=== PATIENT | male | born 1950 | race Two or more races ===

== ENCOUNTER 2018-06-08 15:13 | Inpatient (IN) | payer MEDICAID, MEDICARE ==
[~2018-06-08] VITALS: Ht 180.3 cm; Wt 78.6 kg
[2018-06-08] MEDS ORDERED: SODIUM CHLORIDE 0.9% 1,000 ML IV ONE (15:46)
[2018-06-08] MEDS ORDERED: DIPHENOXYLATE W/ATROPINE 2.5 MG TAB PO ONE (16:00)
[2018-06-08 16:01] LABS: Basophils # (auto) 0 uL; Basophils % (auto) 0.1 % (0.0-2.0); Eosinophils # (auto) 0 uL; Hemoglobin 14.9 g/dL (13.5-17.5); Neutrophils # (auto) 4.9 uL; Nucleated Red Blood Cells % 0.1 %; Red Cell Distribution Width 14.5 % (11.8-14.3); White Blood Cell 6.5 10^3/uL (4.4-10.8)
[2018-06-08 16:02] LABS: Eosinophils % (auto) 0.3 % (0.0-7.0); Lymphocytes # (auto) 0.7 uL; Lymphocytes % (auto) 10.9 % (10.0-50.0); Mean Corpuscular Hemoglobin 28.8 pg (28.0-32.0); Mean Corpuscular Volume 84.8 fL (80.0-100.0); Monocytes # (auto) 0.8 uL; Monocytes % (auto) 12.3 % (0.0-12.0); Neutrophils % (auto) 76.4 % (37.0-80.0); Platelet Count (auto) 524 10^3/uL (140-450); Red Blood Cells 5.18 10^6/uL (4.5-5.90)
[2018-06-08 16:13] LABS: INR 1.22 (0.9-1.15); Partial Thromboplastin Time 28.4 sec (23.78-33.04); Prothrombin Time 12.9 sec (9.27-12.13)
[2018-06-08 16:14] LABS: Albumin 2.7 g/dL (3.4-5.0); Calcium 8.3 mg/dL (8.5-10.1); Potassium 3.5 mmol/L (3.5-5.1)
[2018-06-08 16:17] LABS: BUN/Creatinine Ratio 12.7; Bilirubin, Total 0.9 mg/dL (0.2-1.0); Total Protein 7.7 g/dL (6.4-8.2)
[2018-06-08 17:10] LABS: Urine Bacteria NONE SEEN /hpf (None Seen); Urine Blood TRACE /uL (Negative); Urine Mucus FEW (None Seen); Urine Specific Gravity 1.025 (1.001-1.035); Urine WBC 3 /hpf (0 - 3)
[2018-06-08] MEDS ORDERED: VANCOMYCIN 1GM/250ML 250 ML IV ONE (17:15)
[2018-06-08] MEDS ORDERED: PIPERACILLIN-TAZOB 3.375GM 100 ML IV ONE (17:15)
[2018-06-08] MEDS ORDERED: ACETAMINOPHEN 500 MG TAB PO PRN (17:30)
[2018-06-08] MEDS ORDERED: traMADol HCL 50 MG TAB PO PRN (17:30)
[2018-06-08] MEDS ORDERED: LORazepam 0.5 MG TAB PO PRN (17:30)
[2018-06-08] MEDS ORDERED: DEXTROSE (50%) 50ML SYRG IV PRN (17:30)
[2018-06-08] MEDS ORDERED: ONDANSETRON HCL 4 MG/2 ML VIAL IV PRN (17:30)
[2018-06-08] MEDS ORDERED: NITROGLYCERIN 0.4 MG SL TAB SL PRN (17:30)
[2018-06-08] MEDS ORDERED: TEMAZEPAM 15 MG CAP PO PRN (17:30)
[2018-06-08] MEDS ORDERED: MORPHINE SULFATE 4 MG/ML SYR/VIAL IV PRN ×2 (17:30)
[2018-06-08] MEDS: SODIUM CHLORIDE 0.9% 1,000 ML IV SCH ×2 (17:44→23:57)
[2018-06-08] MEDS ORDERED: cefTRIAXone 1GM/50ML D5W 50 ML IV ONE (18:00)
[2018-06-08] MEDS: ACCU-CHEK COMFORT CURVE STRIP VI SCH ×2 (18:19→21:47)
[2018-06-08] MEDS: metroNIDAZOLE 500MG/100ML 100 ML IV SCH ×2 (18:42→23:57)
[2018-06-08 18:59] LABS: Hematocrit 38.8 % (41.0-53.0); Hemoglobin 12.9 g/dL (13.5-17.5)
[2018-06-08 19:15] LABS: CRP High Sensitivity 7.76 mg/dL (< 0.3)
[2018-06-08 20:30] VITALS: BP 108/65
[2018-06-08] MEDS: FAMOTIDINE 20 MG TAB PO SCH (21:47)
[2018-06-08 22:00] VITALS: BP 108/65
[2018-06-09 00:59] LABS: Hemoglobin 11.2 g/dL (13.5-17.5)
[2018-06-09 04:44] VITALS: BP 91/54
[2018-06-09 05:33] LABS: Basophils # (auto) 0 uL; Basophils % (auto) 0.1 % (0.0-2.0); Eosinophils # (auto) 0.1 uL; Eosinophils % (auto) 0.9 % (0.0-7.0); Hematocrit 37.8 % (41.0-53.0); Hemoglobin 12.6 g/dL (13.5-17.5); Lymphocytes # (auto) 0.4 uL; Lymphocytes % (auto) 6.5 % (10.0-50.0); Mean Corpuscular Hemoglobin 28.6 pg (28.0-32.0); Mean Corpuscular Hgb Conc. 33.4 g/dL (32.0-36.0); Mean Corpuscular Volume 85.6 fL (80.0-100.0); Monocytes # (auto) 0.4 uL; Monocytes % (auto) 6.8 % (0.0-12.0); Neutrophils # (auto) 5.3 uL; Neutrophils % (auto) 85.7 % (37.0-80.0); Platelet Count (auto) 368 10^3/uL (140-450); Red Blood Cells 4.41 10^6/uL (4.5-5.90); Red Cell Distribution Width 14.5 % (11.8-14.3); White Blood Cell 6.2 10^3/uL (4.4-10.8)
[2018-06-09 05:59] LABS: Calcium 7.3 mg/dL (8.5-10.1); Potassium 3.5 mmol/L (3.5-5.1)
[2018-06-09 06:02] LABS: BUN/Creatinine Ratio 11.7; Bilirubin, Total 0.5 mg/dL (0.2-1.0); Total Protein 5.7 g/dL (6.4-8.2)
[2018-06-09] MEDS: ACCU-CHEK COMFORT CURVE STRIP VI SCH ×4 (06:04→23:59)
[2018-06-09] MEDS: metroNIDAZOLE 500MG/100ML 100 ML IV SCH ×4 (06:04→23:59)
[2018-06-09 06:09] LABS: Cholesterol 59 mg/dL (< 200); HDL Cholesterol 22 mg/dL (40-59); LDL Cholesterol 41 mg/dL (< 100); Triglycerides 50 mg/dL (< 150)
[2018-06-09] MEDS: SODIUM CHLORIDE 0.9% 1,000 ML IV SCH ×3 (06:11→21:13)
[2018-06-09 07:29] VITALS: BP 95/56
[2018-06-09 08:00] VITALS: BP 95/56
[2018-06-09] MEDS: cefTRIAXone 1GM/50ML D5W 50 ML IV SCH (09:25)
[2018-06-09] MEDS: FAMOTIDINE 20 MG TAB PO SCH ×2 (09:25→22:25)
[2018-06-09 11:43] VITALS: BP 103/61
[2018-06-09] MEDS ORDERED: KETOROLAC TROMETH 30 MG/ML 1ML VIAL IV PRN (12:45)
[2018-06-09] MEDS ORDERED: TAMSULOSIN HYDROCHLORIDE 0.4 MG CAP PO ONE (12:45)
[2018-06-09 16:43] VITALS: BP 88/51
[2018-06-09 22:00] VITALS: BP 86/52
[2018-06-10 05:01] VITALS: BP 87/58
[2018-06-10] MEDS: ACCU-CHEK COMFORT CURVE STRIP VI SCH ×4 (05:39→23:33)
[2018-06-10] MEDS: metroNIDAZOLE 500MG/100ML 100 ML IV SCH ×4 (05:39→23:28)
[2018-06-10] MEDS: cefTRIAXone 1GM/50ML D5W 50 ML IV SCH (08:32)
[2018-06-10] MEDS: SODIUM CHLORIDE 0.9% 1,000 ML IV SCH ×2 (08:32→19:27)
[2018-06-10] MEDS: FAMOTIDINE 20 MG TAB PO SCH ×2 (08:33→21:22)
[2018-06-10 09:00] VITALS: BP 101/58
[2018-06-10 13:00] VITALS: BP 87/67
[2018-06-10 17:00] VITALS: BP 114/60
[2018-06-10] MEDS: TAMSULOSIN HYDROCHLORIDE 0.4 MG CAP PO SCH (17:39)
[2018-06-10 22:00] VITALS: BP 91/58
[2018-06-11] MEDS: SODIUM CHLORIDE 0.9% 1,000 ML IV SCH ×2 (05:27→15:54)
[2018-06-11] MEDS: metroNIDAZOLE 500MG/100ML 100 ML IV SCH ×4 (05:33→23:33)
[2018-06-11] MEDS: ACCU-CHEK COMFORT CURVE STRIP VI SCH ×2 (05:36→12:20)
[2018-06-11 05:47] VITALS: BP 106/64
[2018-06-11] MEDS: FAMOTIDINE 20 MG TAB PO SCH ×2 (08:40→21:23)
[2018-06-11] MEDS: cefTRIAXone 1GM/50ML D5W 50 ML IV SCH (08:40)
[2018-06-11 09:00] VITALS: BP 107/69
[2018-06-11] MEDS ORDERED: GOLYTELY 4L KIT PO ONE (12:00)
[2018-06-11 13:00] VITALS: BP 106/66
[2018-06-11 17:00] VITALS: BP 102/51
[2018-06-11] MEDS: TAMSULOSIN HYDROCHLORIDE 0.4 MG CAP PO SCH (17:21)
[2018-06-11 22:00] VITALS: BP 92/64
[2018-06-12] MEDS: SODIUM CHLORIDE 0.9% 1,000 ML IV SCH ×3 (01:27→21:38)
[2018-06-12] MEDS ORDERED: GOLYTELY 4L KIT PO ONE (05:00)
[2018-06-12 05:23] VITALS: BP 100/61
[2018-06-12] MEDS: metroNIDAZOLE 500MG/100ML 100 ML IV SCH ×3 (05:45→17:21)
[2018-06-12] MEDS ORDERED: SODIUM CHLORIDE LOCK 10 ML ONE (08:17)
[2018-06-12] MEDS ORDERED: diphenhdrAMINE 50mg/ml (500mg/10ml VIAL) ONE (08:17)
[2018-06-12 09:00] VITALS: BP 110/60
[2018-06-12] MEDS: cefTRIAXone 1GM/50ML D5W 50 ML IV SCH (09:05)
[2018-06-12] MEDS: FAMOTIDINE 20 MG TAB PO SCH ×2 (09:34→21:40)
[2018-06-12 11:57] LABS: Albumin 1.8 g/dL (3.4-5.0); Calcium 7.2 mg/dL (8.5-10.1); Potassium 3.3 mmol/L (3.5-5.1)
[2018-06-12 12:02] LABS: BUN/Creatinine Ratio 9.9; Bilirubin, Total 0.3 mg/dL (0.2-1.0); Total Protein 5.4 g/dL (6.4-8.2)
[2018-06-12] MEDS ORDERED: ONDANSETRON HCL 4 MG/2 ML VIAL ONE (12:21)
[2018-06-12] MEDS: fentaNYL CITRATE 100 MCG/2 ML VL ONE ×3 (12:22→12:30)
[2018-06-12] MEDS: MIDAZOLAM HCL 5 MG/ML-1ML VIAL ONE ×3 (12:22→12:30)
[2018-06-12 12:53] VITALS: BP 108/64
[2018-06-12] MEDS ORDERED: POTASSIUM CHL 20 Meq TABLET PO ONE (14:30)
[2018-06-12] MEDS: predniSONE 20 MG TAB PO SCH (14:39)
[2018-06-12] MEDS: MESALAMINE 400mg Delayed Release Cap PO SCH ×2 (14:40→21:40)
[2018-06-12 17:00] VITALS: BP 91/60
[2018-06-12] MEDS: TAMSULOSIN HYDROCHLORIDE 0.4 MG CAP PO SCH (17:21)
[2018-06-12 22:00] VITALS: BP 94/55
[2018-06-13] MEDS: metroNIDAZOLE 500MG/100ML 100 ML IV SCH ×4 (00:06→18:00)
[2018-06-13] MEDS: MESALAMINE 400mg Delayed Release Cap PO SCH ×2 (05:44→14:00)
[2018-06-13] MEDS: SODIUM CHLORIDE 0.9% 1,000 ML IV SCH ×2 (05:44→17:27)
[2018-06-13 05:45] VITALS: BP 90/59
[2018-06-13 09:00] VITALS: BP 90/55
[2018-06-13] MEDS: cefTRIAXone 1GM/50ML D5W 50 ML IV SCH (09:21)
[2018-06-13] MEDS: predniSONE 20 MG TAB PO SCH (10:00)
[2018-06-13] MEDS: FAMOTIDINE 20 MG TAB PO SCH (10:00)
[2018-06-13] MEDS ORDERED: HYDROmorphone HCL 2 MG/ML VL IV PRN (10:30)
[2018-06-13] MEDS ORDERED: ACCU-CHEK COMFORT CURVE STRIP VI ONE (10:30)
[2018-06-13] MEDS ORDERED: ePHEDrine SULFATE 50 MG/ML AMP IV PRN (10:30)
[2018-06-13] MEDS ORDERED: ONDANSETRON HCL 4 MG/2 ML VIAL IV ONE (10:30)
[2018-06-13] MEDS ORDERED: KETOROLAC TROMETH 30 MG/ML 1ML VIAL IV ONE (10:30)
[2018-06-13] MEDS ORDERED: LABETALOL HCL 5 MG/ML 4ML SYRINGE IV PRN (10:30)
[2018-06-13] MEDS ORDERED: MEPERIDINE HCL (50 MG/ML) 1 ML VIAL ONE (10:53)
[2018-06-13] MEDS ORDERED: MIDAZOLAM HCL 1MG/1ML-2 ML VIAL ONE (10:53)
[2018-06-13 11:24] LABS: Basophils # (auto) 0 uL; Basophils % (auto) 0.3 % (0.0-2.0); Eosinophils # (auto) 0 uL; Eosinophils % (auto) 0.7 % (0.0-7.0); Hematocrit 32.8 % (41.0-53.0); Lymphocytes # (auto) 0.8 uL; Lymphocytes % (auto) 19.6 % (10.0-50.0); Mean Corpuscular Hemoglobin 28.4 pg (28.0-32.0); Mean Corpuscular Hgb Conc. 33.6 g/dL (32.0-36.0); Mean Corpuscular Volume 84.4 fL (80.0-100.0); Monocytes # (auto) 0.5 uL; Monocytes % (auto) 12.8 % (0.0-12.0); Neutrophils # (auto) 2.8 uL; Neutrophils % (auto) 66.6 % (37.0-80.0); Platelet Count (auto) 285 10^3/uL (140-450); Red Blood Cells 3.88 10^6/uL (4.5-5.90); Red Cell Distribution Width 14.4 % (11.8-14.3); White Blood Cell 4.1 10^3/uL (4.4-10.8)
[2018-06-13] MEDS ORDERED: DEXAMETHASONE SOD PHOS 10MG/1ML VIAL INJ ONE (11:30)
[2018-06-13] MEDS ORDERED: PROPOFOL 10 MG/ML 20 ML IV ONE (11:30)
[2018-06-13] MEDS ORDERED: MORPHINE SULFATE 4 MG/ML SYR/VIAL IV ONE (12:00)
[2018-06-13 12:28] VITALS: BP 105/65
[2018-06-13] MEDS: TAMSULOSIN HYDROCHLORIDE 0.4 MG CAP PO SCH (18:00)
== END 2018-06-13 18:15 | disposition home or self-care (01) | DRG 691 ==
LOC: ER 15:16 → TELE-WESTW 15:17
PROVIDERS: ADMIT Internal Medicine; ATTEND Family Medicine
PROC: 0DBE8ZX Excision of Large Intestine, Via Natural or Artificial Opening Endoscopic, Diagnostic (ICD-10-PCS; principal; 2018-06-12 12:20)
PROC: 0TF6XZZ Fragmentation in Right Ureter, External Approach (ICD-10-PCS; 2018-06-13)
DX: N13.2 Hydronephrosis with renal and ureteral calculous obstruction (principal); K92.1 Melena; E87.1 Hypo-osmolality and hyponatremia; D68.9 Coagulation defect, unspecified; K51.90 Ulcerative colitis, unspecified, without complications; N17.9 Acute kidney failure, unspecified; K40.90 Unilateral inguinal hernia, without obstruction or gangrene, not specified as recurrent; E11.9 Type 2 diabetes mellitus without complications; N40.0 Benign prostatic hyperplasia without lower urinary tract symptoms; Z83.3 Family history of diabetes mellitus; K59.00 Constipation, unspecified; D47.3 Essential (hemorrhagic) thrombocythemia
CPT/HCPCS: 36415; 71045; 74018; 74176; 80053; 80061; 80074; 81001; 82150; 82270; 82378; 82962; 83036; 83605; 83690; 84484; 85014; 85018; 85025; 85045; 85610; 85652; 85730; 86141; 86850; 86900; 86901; 87040; 87045; 87086; 87493; 87899; 93005; 96361; 96365; 96367; A6257; G0378; J0696; J1100; J1200; J2250; J2405; J2543; J2704; J3490

== ENCOUNTER 2018-06-14 16:45 | Emergency (ER) | payer MEDICARE, OTHER ==
[~2018-06-14] VITALS: Ht 180.3 cm; Wt 81.6 kg
[2018-06-14 16:59] VITALS: BP 98/71
== END 2018-06-14 22:30 | disposition left against medical advice (07) ==
LOC: ER 16:48
DX: M79.89 Other specified soft tissue disorders (principal); Z53.21 Procedure and treatment not carried out due to patient leaving prior to being seen by health care provider

== ENCOUNTER 2018-09-06 10:59 | Emergency (ER) | payer OTHER ==
[~2018-09-06] VITALS: Ht 180.3 cm; Wt 88.5 kg
[2018-09-06 11:43] VITALS: BP 102/64
[2018-09-06] MEDS ORDERED: KETOROLAC TROMETH 60MG/2ML VIAL IM ONE (12:15)
== END 2018-09-06 13:15 | disposition home or self-care (01) ==
LOC: ER 11:02
DX: M47.896 Other spondylosis, lumbar region (principal); M54.16 Radiculopathy, lumbar region
CPT/HCPCS: 72100; 93005; 96372; 99283; J1885

== ENCOUNTER 2019-06-23 17:22 | Emergency (ER) | payer OTHER ==
[~2019-06-23] VITALS: Ht 180.3 cm; Wt 72.6 kg
[~2019-06-23 17:22] MED LIST: AZAT50TA6 PO; MESA800T2 PO; PRED1PAK9 PO
[2019-06-23 19:21] LABS: Basophils # (auto) 0.1 uL; Basophils % (auto) 0.9 % (0.0-2.0); Eosinophils # (auto) 0 uL; Eosinophils % (auto) 0.1 % (0.0-7.0); Hematocrit 43.5 % (41.0-53.0); Hemoglobin 14.5 g/dL (13.5-17.5); Lymphocytes # (auto) 0.2 uL; Lymphocytes % (auto) 1.3 % (10.0-50.0); Mean Corpuscular Hemoglobin 30.4 pg (28.0-32.0); Mean Corpuscular Hgb Conc. 33.4 g/dL (32.0-36.0); Monocytes # (auto) 0.5 uL; Monocytes % (auto) 3.7 % (0.0-12.0); Neutrophils # (auto) 11.9 uL; Platelet Count (auto) 446 10^3/uL (140-450); Red Blood Cells 4.78 10^6/uL (4.5-5.90); Red Cell Distribution Width 15.3 % (11.8-14.3); White Blood Cell 12.7 10^3/uL (4.4-10.8)
[2019-06-23 19:24] LABS: Albumin 1.6 g/dL (3.4-5.0); Amylase 40 U/L (25-115); Anion Gap 11 (5-15); BUN/Creatinine Ratio 20.1; Blood Urea Nitrogen 29 mg/dL (7-18); Calcium 8.5 mg/dL (8.5-10.1); Carbon Dioxide 19 mmol/L (21-32); Chloride 105 mmol/L (98-107); GFR African American 63 mL/min; GFR Non-African American 52 mL/min; Glucose 118 mg/dL (74-106); Lipase 315 U/L (73-393); Potassium 3.4 mmol/L (3.5-5.1); Sodium 135 mmol/L (136-145)
[2019-06-23 19:27] LABS: Alanine Aminotransferase 17 U/L (16-61); Alkaline Phosphatase 116 U/L (45-117); Aspartate Aminotransferase 27 U/L (15-37); Bilirubin, Total 0.5 mg/dL (0.2-1.0); Total Protein 6.6 g/dL (6.4-8.2)
[2019-06-23] MEDS ORDERED: SODIUM CHLORIDE 0.9% 1,000 ML IV ONE (19:45)
[2019-06-23] MEDS ORDERED: IOHEXOL 300 MG/ML 100ML BOTTLE IJ ONE ×2 (19:56→20:44)
[2019-06-23] MEDS ORDERED: VANCOMYCIN PER PHARMACY 0 MG IV SCH (23:00)
[2019-06-23] MEDS ORDERED: PIPERACILLIN-TAZOB 3.375GM 100 ML IV ONE (23:00)
[2019-06-23] MEDS ORDERED: VANCOMYCIN 1GM/250ML 250 ML IV ONE (23:30)
[2019-06-24 01:33] VITALS: BP 98/63
== END 2019-06-24 01:37 | disposition short-term general hospital (02) ==
LOC: EDBD 17:22 → ER 17:22
DX: K63.1 Perforation of intestine (nontraumatic) (principal); K52.9 Noninfective gastroenteritis and colitis, unspecified; N28.9 Disorder of kidney and ureter, unspecified; N20.0 Calculus of kidney; Z79.899 Other long term (current) drug therapy
CPT/HCPCS: 36415; 74177; 80053; 80320; 82150; 83690; 84484; 85025; 93005; 96361; 96365; 99285; J2543; J3370; J7030; J7040; Q9967